=== PATIENT | male | born 2000 | race Caucasian/White ===

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

== ENCOUNTER 2020-12-10 20:53 | Emergency (ER) | payer MEDICAID ==
[~2020-12-10] VITALS: Ht 175.3 cm; Wt 60.0 kg
[2020-12-10 21:11] VITALS: BP 117/49
== END 2020-12-10 23:20 | disposition home or self-care (01) ==
LOC: ER 20:53
DX: L60.0 Ingrowing nail (principal)
CPT/HCPCS: 11730; 99284; A4217; Z7610

== ENCOUNTER 2021-03-15 23:08 | Emergency (ER) | payer MEDICAID ==
[~2021-03-15] VITALS: Ht 175.3 cm; Wt 60.0 kg
[2021-03-16] MEDS ORDERED: T3 PO (00:16)
[2021-03-16] MEDS ORDERED: AMOX-424 MT (00:16)
[2021-03-16] MEDS ORDERED: LIDOCAINE HCL/PF 1% 10 MG/ML 5ML VIAL IJ ONE (00:30)
[2021-03-16] MEDS ORDERED: BACITRACIN ZINC OINT UDPKT TOP ONE (00:30)
[2021-03-16] MEDS ORDERED: ACETAMINOPHEN WITH CODEINE 300/30MG TABLET PO ONE (00:30)
[2021-03-16 01:23] VITALS: BP 112/61
== END 2021-03-16 01:23 | disposition home or self-care (01) ==
LOC: ER 23:08
DX: L60.0 Ingrowing nail (principal); Z79.899 Other long term (current) drug therapy
CPT/HCPCS: 11730; 99284; J3490; 99283

== ENCOUNTER 2021-05-26 21:56 | Emergency (ER) | payer MEDICAID ==
[~2021-05-26] VITALS: Ht 175.3 cm; Wt 62.0 kg
[~2021-05-26 21:56] MED LIST: AMOX-424 MT; T3 PO
[2021-05-27 02:34] LABS: BASOPHILS % 0.7 % (0.0-2.0); EOSINOPHILS % 7.6 % (0.0-5.0); HEMATOCRIT. 40.9 % (42.0-52.0); HEMOGLOBIN. 13.8 g/dL (14.0-18.0); LYMPHOCYTES % 43.3 % (20.0-50.0); MEAN CORPUSCULAR HEMOGLOBIN 27.7 pg (28.0-32.0); MEAN CORPUSCULAR VOLUME 82.1 fL (80.0-94.0); MEAN PLATELET VOLUME 9.8 fl (7.4-10.4); MONOCYTES % 9.1 % (2.0-8.0); NEUTROPHILS % 39.3 % (40.0-76.0); PLATELET 159 x1000/uL (130-400); RED BLOOD CELL COUNT 4.98 mill/uL (4.7-6.1); RED CELL DISTRIBUTION WIDTH 12.8 % (11.6-14.6)
[2021-05-27 02:35] LABS: CHLORIDE 108 mEq/L (98-107)
[2021-05-27 03:38] VITALS: BP 108/61
== END 2021-05-27 03:39 | disposition home or self-care (01) ==
LOC: ER 21:56
DX: R04.0 Epistaxis (principal); R42 Dizziness and giddiness
CPT/HCPCS: 36415; 80053; 85025; 93005; 99284

== ENCOUNTER 2021-11-21 18:19 | Emergency (ER) | payer MEDICAID ==
[~2021-11-21] VITALS: Ht 175.3 cm; Wt 64.0 kg
[2021-11-21 21:56] LABS: CLARITY URINE CLOUDY (CLEAR); COLOR URINE YELLOW (YELLOW); KETONES URINE NEGATIVE (NEGATIVE); LEUKOCYTE ESTERASE URINE NEGATIVE (NEGATIVE); NITRITE URINE NEGATIVE (NEGATIVE); OCCULT BLOOD URINE NEGATIVE (NEGATIVE); PROTEIN URINE NEGATIVE (NEGATIVE); SPECIFIC GRAVITY URINE 1.021 (1.005-1.030)
[2021-11-21 23:24] VITALS: BP 122/71
== END 2021-11-21 23:26 | disposition home or self-care (01) ==
LOC: ER 18:19
DX: R31.9 Hematuria, unspecified (principal)
CPT/HCPCS: 81003; 99283

== ENCOUNTER 2022-03-04 19:09 | Emergency (ER) | payer MEDICAID ==
[~2022-03-04] VITALS: Ht 175.3 cm; Wt 65.0 kg
[2022-03-04 19:36] VITALS: BP 111/58
[2022-03-04] MEDS ORDERED: LIDOCAINE HCL 1% 20ML VIAL (Pyxis) INJ INFIL ONE (21:00)
[2022-03-04] MEDS ORDERED: DOXY100C5 MT (22:29)
[2022-03-04] MEDS ORDERED: IBUP-2029 MT (22:29)
[2022-03-04] MEDS ORDERED: CEPH500T MT (22:29)
[2022-03-04] MEDS ORDERED: BACITRACIN 15GM TUBE TOP ONE (22:30)
== END 2022-03-04 23:00 | disposition home or self-care (01) ==
LOC: ER 19:09
DX: L60.0 Ingrowing nail (principal); Z00.00 Encounter for general adult medical examination without abnormal findings
CPT/HCPCS: 99283; J3490